=== PATIENT | female | born 1965 | race Two or more races ===

== ENCOUNTER 2024-05-06 09:20 | Outpatient (CLI) | payer OTHER ==
[~2024-05-06 09:20] MED LIST: BENZONATATE100 MG; KETO10TA2 PO; ORPH100T PO; SINGULAIR10 MG; VALTREX1000 MG PO; VITAMIN C100 M1 PO
== END 2024-05-06 09:27 | disposition home or self-care (01) ==
LOC: TOM 09:20
PROVIDERS: ATTEND Internal Medicine Gastroenterology
DX: K56.609 Unspecified intestinal obstruction, unspecified as to partial versus complete obstruction (principal); R10.84 Generalized abdominal pain

== ENCOUNTER 2024-07-24 08:51 | Outpatient (CLI) | payer OTHER | END 2024-07-24 09:01 | disposition home or self-care (01) | LOC: TOM 08:51 | PROVIDERS: ATTEND Surgery | DX: R10.817 Generalized abdominal tenderness (principal) ==